=== PATIENT | female | born 1965 | race Caucasian/White ===

== ENCOUNTER 2024-08-16 07:55 | Emergency (ER) | payer OTHER ==
[~2024-08-16] VITALS: Ht 152.4 cm; Wt 67.0 kg
[2024-08-16] VITALS (14 sets, daily range): BP systolic 106–143; BP diastolic 60–127
[2024-08-16] MEDS ORDERED: Diph, Acellular Pertussis, Tet 0.5 ML/VIAL (Tdap) SDV IM ONE (08:15)
== END 2024-08-16 12:48 | disposition short-term general hospital (02) | DRG 605 ==
LOC: ED 07:55
DX: S01.81XA Laceration without foreign body of other part of head, initial encounter (principal); S02.2XXA Fracture of nasal bones, initial encounter for closed fracture; F17.210 Nicotine dependence, cigarettes, uncomplicated; V57.5XXA Driver of pick-up truck or van injured in collision with fixed or stationary object in traffic accident, initial encounter
CPT/HCPCS: J0690